=== PATIENT | female | born 1955 | race Caucasian/White ===

== ENCOUNTER → 2016-04-17 | Outpatient (CLI) | payer OTHER ==
[~2016-04-17] VITALS: Ht 175.3 cm; Wt 106.5 kg
[~2016-04-17] MED LIST: ALEVE220 MG PO; ATENOLOL50 MG PO; AUGMENTIN875 MG PO; BP MEDS X 2; CALTRATE 600 +1 EAC1 PO; FLONASE16 G1 BOTH NARES; GLUCOSAMINE &1 EAC1 PO; HARD NAILS2500 MCG PO; MELATONIN10 M5 PO; MULTI-DAY VITA1 EACH PO; MULTIVITAMINS1 EAC2; NORVASC2.5 MG PO; OXYCODONE-ACET1 EACH PO; PROMETHAZINE HC25 M1 PO; TENORMIN50 MG PO; Tenormin PO; VITAMIN B-1250 MC3 PO; Vicodin,Norco 5/325 PO
== END | disposition home or self-care (01) ==
LOC: AMB 08:25
DX: D64.9 Anemia, unspecified (principal); K31.7 Polyp of stomach and duodenum; K57.90 Diverticulosis of intestine, part unspecified, without perforation or abscess without bleeding; K64.9 Unspecified hemorrhoids; Z98.84 Bariatric surgery status; I10 Essential (primary) hypertension; M85.80 Other specified disorders of bone density and structure, unspecified site; R73.09 Other abnormal glucose; M19.90 Unspecified osteoarthritis, unspecified site; E55.9 Vitamin D deficiency, unspecified
CPT/HCPCS: 88305; 88342 TC; B4087; J2250; J3010

== ENCOUNTER 2016-07-13 12:43 | Day surgery (SDC) | payer OTHER ==
[~2016-07-13] VITALS: Ht 175.3 cm; Wt 106.6 kg
[~2016-07-13 12:43] MED LIST changes: +FLONASE ALLERG9.9 ML BOTH NARES; +VIBRAMYCIN100 MG PO
[2016-07-13 13:20] VITALS: BP 156/72
[2016-07-13 13:41] LABS: EOSINOPHIL (%) 1.6 % (0-5); EOSINOPHIL COUNT 0.1 K/uL (0-0.3); HEMATOCRIT 41.1 % (36.0-46.0); IMMATURE GRANULOCYTE (%) 0.5 % (0.0-0.7); LYMPHOCYTE COUNT 1.5 K/uL (1.0-2.8); MCH 22.5 PG (29.0-34.0); MCHC 30.2 G/DL (30.0-36.0); MCV 74.5 FL (83-99); MEAN PLAT.VOLUME 9.9 uM^3 (9.5-12.4); MONOCYTE (%) 9.5 % (3-12); MONOCYTE COUNT 0.6 K/uL (0-0.8); NEUTROPHIL (%) 64.1 % (45-76); PLATELET COUNT 226 K/uL (156-360); RBC DIS.WIDTH-CV 15.7 % (11.8-14.6); RBC DIS.WIDTH-SD 41.5 % (39-53); RED BLOOD COUNT 5.52 M/uL (3.80-5.20); WHITE BLOOD COUNT 6.2 K/uL (4.1-10.2)
[2016-07-13 14:29] LABS: METH RESISTANT S AUREUS PCR NEGATIVE (NEGATIVE)
[2016-07-13 14:30] LABS: PROBE CHECK PASS; SPECIMEN PROCESSING CONTROL PASS
[2016-07-13 15:50] LABS: ANION GAP 9 MEQ/L (2-14); CHLORIDE 105 MEQ/L (99-109); POTASSIUM 3.9 MEQ/L (3.7-5.4); SAMPLE HEMOLYSIS CHECK 0; SAMPLE ICTERIC CHECK 0; SAMPLE LIPEMIA CHECK 0; SODIUM 138 MEQ/L (136-147); TOTAL BILIRUBIN 0.5 MG/DL (0.0-1.0)
[2016-07-13 15:55] LABS: ALKALINE PHOSPHATASE 102 IU/L (3-129); GFR ESTIMATE (CALCULATED) > 59 mL/min/; GLUCOSE 96 mg/dL (70-99); UREA NITROGEN (BUN) 13 mg/dL (9-23)
[2016-07-13 19:35] VITALS: BP 159/78
== END 2016-07-13 20:05 | disposition home or self-care (01) ==
LOC: SDC 12:43
PROVIDERS: Ophthalmology
PROC: 08B53ZZ Excision of Left Vitreous, Percutaneous Approach (ICD-10-PCS; principal; 2016-07-13)
PROC: 08QF3ZZ Repair Left Retina, Percutaneous Approach (ICD-10-PCS; 2016-07-13)
DX: H33.002 Unspecified retinal detachment with retinal break, left eye (principal); I10 Essential (primary) hypertension; M19.90 Unspecified osteoarthritis, unspecified site
CPT/HCPCS: 80053; 85025; 87641; J0690; J1100; J1885; J2250; J2405; J3010; J3300; J7120